=== PATIENT | female | born 1945 | race Caucasian/White ===

== ENCOUNTER → 2022-06-27 10:26 | Outpatient (CLI) | payer MEDICARE, OTHER, SELFPAY ==
--- NOTE | 2022-06-27 10:29 | DI.RAD.S_ITS ---
PROCEDURE: XR LUMBAR SPINE MIN 4V INDICATIONS: Follow-up lumbar fracture L1, L2 and L4 TECHNIQUE: 5 views of the lumbar spine were acquired, including bilateral oblique views. COMPARISON: [facility], MYAH, MRI L-SPINE W/O CONTRAST, 08/14/2021, 13:01. [facility], MYAH, XR L-SPINE 2-3V, 07/27/2021, 12:24. FINDINGS: Bones: 5 nonrib-bearing vertebrae are present. Minimal scoliosis. L1 compression fracture, unchanged. Mild height loss at L2 and L4. Lower lumbar spine facet joint hypertrophy. No suspicious bony lesions. Soft tissues: Overlying bowel gas pattern is normal. No suspicious soft tissue calcifications. Oblique images: No pars defects. IMPRESSION: No significant interval change compared to MRI 08/14/2021. L1, L2, and L4 compression fractures. Dictated by: Canelo Pinto M.D. on 06/27/2022 at 13:01 Approved by: Canelo Pinto M.D. on 06/27/2022 at 13:06
--- NOTE | 2022-06-27 10:29 | DI.RAD.S_ITS ---
PROCEDURE: XR SHOULDER LT MIN 2V INDICATIONS: left shoulder impingement TECHNIQUE: 3 views of the shoulder were acquired. COMPARISON: None. FINDINGS: Bones: No fractures or dislocations. No suspicious bony lesions. Mild left shoulder DJD. Visualized ribs appear intact. Prior left-sided rib fractures. Soft tissues: No suspicious soft tissue calcifications. IMPRESSION: Mild left shoulder DJD. Dictated by: Canelo Pinto M.D. on 06/27/2022 at 13:07 Approved by: Canelo Pinto M.D. on 06/27/2022 at 13:10
== END ==
PROVIDERS: PCP Physician Assistant Medical; Referring Provider Physical Medicine & Rehabilitation; Visit Provider Physical Medicine & Rehabilitation
DX: M75.42 Impingement syndrome of left shoulder (principal); M19.012 Primary osteoarthritis, left shoulder; M47.816 Spondylosis without myelopathy or radiculopathy, lumbar region; S32.010S Wedge compression fracture of first lumbar vertebra, sequela; S32.020S Wedge compression fracture of second lumbar vertebra, sequela; S32.040S Wedge compression fracture of fourth lumbar vertebra, sequela; M81.0 Age-related osteoporosis without current pathological fracture
CPT/HCPCS: 72110; 73030; 99214

== ENCOUNTER → 2022-12-19 09:10 | Outpatient (CLI) | payer MEDICARE, OTHER, SELFPAY ==
--- NOTE | 2022-12-19 09:11 | DI.RAD.S_ITS ---
PROCEDURE: XR LUMBAR SPINE MIN 4V INDICATIONS: Follow up fractures TECHNIQUE: 5 views of the lumbar spine were acquired, including bilateral oblique views. COMPARISON: [facility], [place], XR LUMBAR SPINE MIN 4V, 06/27/2022, 10:25. FINDINGS: Bones: Multilevel degenerative changes. Vertebral body height loss of L1 of approximately 50% with no change compared to prior. Convexity of the superior endplate of L2. Degenerative disc disease throughout the lumbar spine. Facet arthrosis in the lower lumbar spine. Levoscoliosis with the left apex at L2 and a Ju[place] angle of 13?. Soft tissues: Overlying bowel gas pattern is normal. No suspicious soft tissue calcifications. Oblique images: No pars defects. IMPRESSION: 1. No interval change compared to 06/27/2022. 2. Multilevel degenerative disc disease. 3. Remote L2 compression fracture. Dictated by: Shreyas Marshall M.D. on 12/19/2022 at 10:13 Approved by: Shreyas Marshall M.D. on 12/19/2022 at 10:15
== END ==
PROVIDERS: PCP Physician Assistant Medical; Referring Provider Physical Medicine & Rehabilitation; Visit Provider Physical Medicine & Rehabilitation
DX: M51.36 Other intervertebral disc degeneration, lumbar region (principal); M47.816 Spondylosis without myelopathy or radiculopathy, lumbar region; M75.42 Impingement syndrome of left shoulder; M81.0 Age-related osteoporosis without current pathological fracture; S32.010S Wedge compression fracture of first lumbar vertebra, sequela; S32.020S Wedge compression fracture of second lumbar vertebra, sequela
CPT/HCPCS: 72110; 99214